=== PATIENT | female | born 1990 | race Caucasian/White ===

== ENCOUNTER 2018-09-23 16:28 | Emergency (ER) | payer OTHER ==
[~2018-09-23] VITALS: Ht 154.9 cm; Wt 78.0 kg
[2018-09-23] MEDS ORDERED: OBSTETRIX DHA1 EACH PO (16:37)
== END 2018-09-23 19:23 | disposition home or self-care (01) ==
LOC: ER 16:28
DX: O46.8X1 Other antepartum hemorrhage, first trimester (principal); Z34.81 Encounter for supervision of other normal pregnancy, first trimester